=== PATIENT | female | born 1980 ===

== ENCOUNTER → 2021-02-03 16:44 | Outpatient (CLI) | payer OTHER, SELFPAY ==
[2021-02-03 17:25] LABS: COVID19 -Nasal RAPID Negative (Negative)
== END ==
PROVIDERS: Visit Provider Nurse Practitioner
DX: J02.9 Acute pharyngitis, unspecified (principal); R05 Cough; R50.9 Fever, unspecified; Z20.822 Contact with and (suspected) exposure to COVID-19
CPT/HCPCS: 87635